=== PATIENT | female | born 1995 | race Caucasian/White ===

== ENCOUNTER 2019-12-02 19:01 | Emergency (ER) | payer OTHER ==
[~2019-12-02] VITALS: Ht 167.6 cm; Wt 59.0 kg
[2019-12-02 19:18] VITALS: Ht 167.6 cm; Wt 59.0 kg
[2019-12-02 22:27] VITALS: BP 109/68
== END 2019-12-02 22:27 | disposition home or self-care (01) ==
LOC: ED 19:01
DX: N61.0 Mastitis without abscess (principal)